=== PATIENT | male | born 1940 | race Caucasian/White ===

== ENCOUNTER 2017-03-04 21:00 | Emergency (ER) | payer BC ==
[~2017-03-04] VITALS: Ht 193 cm; Wt 129.5 kg
[2017-03-04 21:00] VITALS: TEMP 98
[2017-03-04] MEDS ORDERED: CORDARONE200 MG/TAB PO (21:54)
[2017-03-04] MEDS ORDERED: SULAR34 MG PO (21:55)
[2017-03-04] MEDS ORDERED: ALDACTONE 25MG25 M1 PO (21:55)
[2017-03-04] MEDS ORDERED: CRESTOR 10MG10 MG PO (21:55)
[2017-03-04] MEDS ORDERED: XARELTO20 MG PO (21:55)
[2017-03-04] MEDS ORDERED: PROSCAR 5MG5 MG PO (21:56)
[2017-03-04] MEDS ORDERED: ALTACE 10MG TAB10 MG PO (21:56)
[2017-03-04] MEDS ORDERED: NORMODYNE300 MG PO (21:57)
[2017-03-04] MEDS ORDERED: K-DUR20 MEQ PO (21:57)
[2017-03-04] MEDS ORDERED: GLUCOPHAGE500 MG/TAB PO (21:58)
[2017-03-04] MEDS ORDERED: FLOMAX 0.40.4 MG/CAP PO (21:58)
[2017-03-04 22:09] LABS: ADJUSTED CALCIUM 9.4 mg/dL (8.4-10.2); ALBUMIN 4.2 gm/dL (3.5-5.0); BILIRUBIN,TOTAL 0.8 mg/dL (0.0-1.0); CALCIUM 9.6 mg/dL (8.4-10.2); CREATININE, serum 1.18 mg/dL (0.66-1.25); POTASSIUM 3.9 mmol/L (3.4-5.0); TOTAL PROTEIN 6.8 gm/dL (6.4-8.2)
[2017-03-04 23:11] LABS: BASO # 0.1 (0.0-0.2); BASO % 0.5 % (0.0-2.0); EOS # 0.2 (0.0-0.7); EOS % 1.3 % (0-4.0); GRAN # 11.8 (1.4-6.5); GRAN % 84.4 % (42.2-75.2); HEMATOCRIT 41.9 % (42.0-52.0); HEMOGLOBIN 13.7 g/dl (13.5-18.0); LYMPH # 0.8 (1.2-3.4); LYMPH % 5.9 % (20.0-51.0); MEAN CELL VOLUME 87 fl (80.0-100.0); MEAN CORPUSCULAR HEMOGLOBIN 28 pg (27.0-31.0); MEAN CORPUSCULAR HGB CONC 33 g/dl (33.0-37.0); MEAN PLATELET VOLUME 10.1 fl (7.4-10.4); MONO % 7.2 % (1.7-9.3); PLATELET COUNT 213 K/mm3 (130-400); RED BLOOD COUNT 4.82 M/mm3 (4.20-5.60); REDCELL DISTRIBUTION WIDTH-CV 14.1 % (11.5-14.5); WHITE BLOOD COUNT 13.9 K/mm3 (4.8-10.8)
[2017-03-04] MEDS ORDERED: ILOTYCIN5 MG/GM OP (23:17)
[2017-03-04 23:39] VITALS: BP 125/85; PULSE 66
== END 2017-03-04 23:35 | disposition home or self-care (01) ==
LOC: COL.ER 21:00
PROVIDERS: Emergency Medicine
DX: H10.9 Unspecified conjunctivitis (principal); R55 Syncope and collapse; I10 Essential (primary) hypertension; I48.91 Unspecified atrial fibrillation; Z95.0 Presence of cardiac pacemaker
CPT/HCPCS: J7040

== ENCOUNTER 2019-01-25 09:12 | Day surgery (SDC) | payer MEDICARE ==
[2019-01-25] VITALS (11 sets, daily range): BP systolic 145–176; BP diastolic 71–88; PULSE 59–76; TEMP 97.5–98.4
[~2019-01-25] VITALS: Ht 193 cm; Wt 129.3 kg
[~2019-01-25 09:12] MED LIST: ALDACTONE 25MG25 M1 PO; ALTACE 10MG TAB10 MG PO; CORDARONE200 MG/TAB PO; CRESTOR 10MG10 MG PO; FLOMAX 0.40.4 MG/CAP PO; GLUCOPHAGE850 MG/TAB PO; ILOTYCIN5 MG/GM OP; K-DUR20 MEQ PO; NORMODYNE300 MG PO; PROSCAR 5MG5 MG PO; SULAR34 MG PO; XARELTO20 MG PO
--- NOTE | 2019-01-25 10:23 | NUR ---
Initial visit; Family and Max thanked Design Teacher for offering prayer prior to his surgical procedure.
[2019-01-25] MEDS ORDERED: PROVENTIL0.09 MG/A1 IH (10:30)
--- NOTE | 2019-01-25 13:33 | NUR ---
Report from Yasemin, PACU at 1307. Pt arrived to room 321-2 at 1315 via bed, CBI and carballo and IVF in place, started post-op vitals, pt alert, states his knees feel "up here" (motions above his bed). Pt is hungry, per Yasemin's report he duglas water. Son arrived to unit, introduced self, gave update.
--- NOTE | 2019-01-25 13:52 | NUR ---
Pt assisted with ordering meal, ADA diet. Tammi ice water with this nurse and provided with crackers. Family at bedside.
[2019-01-25] MEDS ORDERED: VENELEX OINTMEN60 GM TOP (14:06)
--- NOTE | 2019-01-25 15:10 | NUR ---
Called Dr. Chavez to clarify some orders, does not need SSI at this time, but do follow BGs.
--- NOTE | 2019-01-25 16:03 | NUR ---
More family visiting, pt duglas diet well. Denies pain.
--- NOTE | 2019-01-25 18:28 | NUR ---
Pt received supper tray, sitting up in bed, SCDs to BLE, gripper socks in place, call lt in reach, A&O, denies pain, took pill with water. Applied mepilex dressing and own oint to LLE curtis wound: superficial two areas where pt reports were blistered then ruptured prior to hospitalization. Tammi PO well.
--- NOTE | 2019-01-26 02:09 | NUR ---
Patient has CBI running and urine remains light pink. Tolerating PO fluids and food. IV to INT. Patient educated about CBI and catheter. Denies pain at this time. Spinal sedation wearing off and patient able to move and feel legs. Patient has rested well, but has not slept as of yet. Denies any needs at this time. Will continue to monitor.
[2019-01-26 03:41] VITALS: BP 154/70; PULSE 67; TEMP 97.6
[2019-01-26 07:15] VITALS: BP 177/84; PULSE 66; TEMP 97.6
[2019-01-26 11:33] VITALS: BP 149/84; PULSE 65; TEMP 97.3
--- NOTE | 2019-01-26 11:44 | NUR ---
Visited with the patient for some time and provided spiritual care.
[2019-01-26 15:18] VITALS: BP 175/86; PULSE 64; TEMP 97.2
--- NOTE | 2019-01-26 16:44 | NUR ---
SW met with patient and family to discuss discharge planning. Patient lives independently at home with his . Patient's PCP is Dr Hale in [place] and he obtains prescriptions from [facility]. Patient does not use any DME or home health services. Patient and family is unsure if he has any advanced directives. SW does not anticipate any discharge needs.
--- NOTE | 2019-01-26 18:15 | NUR ---
Voiding clear peach urine without difficulty per 6 bottle routine. Bladder scan with residual of 850 cc. Denies discomfort. Discussed with Dr. Gonzalez per phone. Patient wants to go home without catheter and void frequently. Home instructions reviewed with family present. Dismissed to home per w/c with family.
== END 2019-01-26 18:15 | disposition home or self-care (01) ==
LOC: SDCO 09:12 → SURG 15:48 → SDCO 01-26 18:15
DX: N40.1 Benign prostatic hyperplasia with lower urinary tract symptoms (principal); R33.8 Other retention of urine; N39.498 Other specified urinary incontinence; R35.0 Frequency of micturition; R39.15 Urgency of urination; R39.12 Poor urinary stream; I48.91 Unspecified atrial fibrillation; E11.9 Type 2 diabetes mellitus without complications; E78.00 Pure hypercholesterolemia, unspecified; I10 Essential (primary) hypertension; E87.6 Hypokalemia; N41.1 Chronic prostatitis; J32.9 Chronic sinusitis, unspecified; Z96.641 Presence of right artificial hip joint; Z96.611 Presence of right artificial shoulder joint; Z79.4 Long term (current) use of insulin; Z79.84 Long term (current) use of oral hypoglycemic drugs; Z79.01 Long term (current) use of anticoagulants; Z88.0 Allergy status to penicillin; Z88.2 Allergy status to sulfonamides; Z88.1 Allergy status to other antibiotic agents; Z80.9 Family history of malignant neoplasm, unspecified; Z81.8 Family history of other mental and behavioral disorders; Z84.1 Family history of disorders of kidney and ureter; M19.90 Unspecified osteoarthritis, unspecified site
CPT/HCPCS: OP; J0690; J1100; J1885; J2250; J2405; J2704; J7030

== ENCOUNTER 2020-06-17 14:59 | Inpatient (IN) | payer MEDICARE ==
[~2020-06-17] VITALS: Ht 193 cm; Wt 126.0 kg
[2020-06-17] VITALS (10 sets, daily range): BP systolic 125–181; BP diastolic 58–104; PULSE 69–81; TEMP 97.3–98.4
[~2020-06-17 14:59] MED LIST changes: +NORMODYNE100 MG PO; -NORMODYNE300 MG PO; +PROVENTIL0.09 MG/A1 IH; +VENELEX OINTMEN60 GM TOP
[2020-06-17] MEDS ORDERED: ROCEPHIN VIA1 G/VIAL IJ (15:51)
[2020-06-17] MEDS ORDERED: TYLENOL 325MG325 MG PO (15:52)
[2020-06-17] MEDS ORDERED: NITROSTAT0.4 MG/TAB SL (15:52)
[2020-06-17] MEDS ORDERED: LIPITOR20 MG PO (15:55)
[2020-06-17] MEDS ORDERED: PLAVIX 75MG TAB75 MG PO (15:56)
[2020-06-17] MEDS ORDERED: FLOMAX 0.40.4 MG/CAP PO (15:56)
[2020-06-17] MEDS ORDERED: XARELTO20 MG PO (15:58)
[2020-06-17] MEDS ORDERED: SENNA-LAX8.6 MG PO (15:58)
[2020-06-17] MEDS ORDERED: VITAMIN C500 MG PO (16:00)
[2020-06-17] MEDS ORDERED: MIRALAX PA17 GM/Dose PO (16:02)
[2020-06-17] MEDS ORDERED: ULTRAM 50MG TAB50 MG PO (16:04)
--- NOTE | 2020-06-17 20:05 | NUR ---
Pt. sitting up in bed at this time. Pt. is alert and confused to place. Pt. is aware that he is confused about place. Three way carballo with CBI running, urine is red. Pt. denies pain. Pt. given water and a sandwich box. Pt. denies further needs, call light within reach.
[2020-06-18 02:52] VITALS: BP 133/81; PULSE 79; TEMP 98
[2020-06-18 08:46] VITALS: BP 139/85; PULSE 78; TEMP 98.6
--- NOTE | 2020-06-18 08:48 | NUR ---
Initial visit; Patient thanked Associate Team Physician for looking in on him and offering prayer and God's blessings. Associate Team Physician wished patient well.
--- NOTE | 2020-06-18 09:08 | NUR ---
SW met with the patient to discuss discharge plan. The patient lives in [place] with his , Sera (ph#[phone]). He reports independence with ADLs and has a cane. The patient's PCP is Dr. Vasquez Hale and he receives his medications from [facility]. He reports no difficulties obtaining his meds. The patient does not have a DPOA-HC in EMR, but he states that he thinks he has one done and that his children: Linden (ph#[phone]) and Manuela (ph#[phone]) are his DPOA-HC. The patient plans to return home with his upon discharge. He states that his children will transport him home. No additional needs at this time.
--- NOTE | 2020-06-18 12:24 | NUR ---
PT UP TO BR WITH ASSIST. HAD LOOSE BM AND THEN RETURNED TO BED.
[2020-06-18 12:55] VITALS: BP 142/89; PULSE 80; TEMP 98.7
[2020-06-18 16:23] VITALS: BP 167/79; PULSE 73; TEMP 98.2
--- NOTE | 2020-06-18 17:24 | NUR ---
PT WOKE FROM [facility] VERY CONFUSED. REORINTED AND WENT TO BR THEN RETURNED TO BED. CBI RUNNING SLOW URINE REDDISH. PT EATING DINNER AT THIS TIME. NO OTHER CO TODAY.
--- NOTE | 2020-06-18 19:15 | NUR ---
RECEIVED CHANGE OF SHIFT REPORT FROM DAY SHIFT NURSE.
[2020-06-18 19:44] VITALS: BP 159/80; PULSE 78; TEMP 98.5
[2020-06-18 23:34] VITALS: BP 142/74; PULSE 74; TEMP 99.1
[2020-06-19 04:00] VITALS: BP 146/67; PULSE 70; TEMP 98.1
[2020-06-19 07:00] VITALS: BP 159/86; PULSE 64; TEMP 98
--- NOTE | 2020-06-19 07:01 | NUR ---
CHANGE OF SHIFT REPORT GIVEN TO DAY SHIFT NURSESAGE.
--- NOTE | 2020-06-19 07:05 | NUR ---
Lying in bed watching TV. Alert and oriented x4. When asked questions about date it took patient a little longer to answer. Denies pain. CBI going at slow rate. Rockwell in place draining pink urine. SCDs applied at this time. Patient denies further needs or concerns.
--- NOTE | 2020-06-19 08:43 | NUR ---
carballo catheter primed with approx 250ml saline, then discontinued, tolerated well, instructed to call when he needs to get up to void, verbalizes understanding
--- NOTE | 2020-06-19 09:05 | NUR ---
Patient sitting on edge of bed. Voids out large blood clot with some pink urine as well. Continues to drink water. Denies additional needs.
--- NOTE | 2020-06-19 09:45 | NUR ---
Patient voids very small amount into urinal, urine pink. Was incontinent of most urine on chux pad, says that he is having hard time using the urinal. Denies additional needs at this time.
--- NOTE | 2020-06-19 10:17 | NUR ---
Patient calls staff in room for assistance. Patient explains that he is frustrated with trying to use the urinal so he just urinated on the chux pad. EMMA Sargent, says that the urine on pad was pinkish/red in color, no clots noted. New chux placed under patient. Denies additional needs at this time.
[2020-06-19 11:49] VITALS: PULSE 68; TEMP 97.3
[2020-06-19 14:56] VITALS: BP 160/88; PULSE 69; TEMP 97.5
--- NOTE | 2020-06-19 15:25 | NUR ---
Urine apple juice in color. Patient requests discharge instructions be reviewed with son. Assisted patient in getting dressed and gathering belongings. Patient assisted by this nurse and AMARJIT Stanley, to son's vehicle. Reviewed all discharge instructions with the patient's son. Son verbalizes understanding and signs paperwork. Discharge packet provided to son. Patient denies additional concerns or needs at this time.
== END 2020-06-19 15:25 | disposition home or self-care (01) | DRG 667 ==
LOC: SDCO 14:59 → SURG 19:25 → SDCO 06-18 13:22 → SURG 06-18 13:23
PROVIDERS: ADMIT Urology
PROC: 0V508ZZ Destruction of Prostate, Via Natural or Artificial Opening Endoscopic (ICD-10-PCS; principal; 2020-06-18)
PROC: 0TBC8ZZ Excision of Bladder Neck, Via Natural or Artificial Opening Endoscopic (ICD-10-PCS; 2020-06-18)
PROC: 0TCB8ZZ Extirpation of Matter from Bladder, Via Natural or Artificial Opening Endoscopic (ICD-10-PCS; 2020-06-18)
DX: N32.0 Bladder-neck obstruction (principal); I48.91 Unspecified atrial fibrillation; N40.0 Benign prostatic hyperplasia without lower urinary tract symptoms; E11.9 Type 2 diabetes mellitus without complications; R33.8 Other retention of urine; M19.90 Unspecified osteoarthritis, unspecified site; E78.00 Pure hypercholesterolemia, unspecified; E78.5 Hyperlipidemia, unspecified; I10 Essential (primary) hypertension; R31.0 Gross hematuria; Z95.5 Presence of coronary angioplasty implant and graft; Z96.641 Presence of right artificial hip joint; Z95.0 Presence of cardiac pacemaker; Z88.0 Allergy status to penicillin; Z88.1 Allergy status to other antibiotic agents
CPT/HCPCS: OP; C1769; J0690; J0696; J2405; J2704; J3010; J7030